=== PATIENT | male | born 1945 | race Caucasian/White ===

== ENCOUNTER → 2016-12-15 | Day surgery (SDC) | payer MEDICARE ==
[~2016-12-15] VITALS: Ht 170.2 cm; Wt 70.9 kg
[~2016-12-15] MED LIST: *morphine SULFATE 8 MG/ML PERIprocedure ONLY ONE; ACETAMINOPHEN 1000 MG/100 ML VIAL IV ONE; ACETAMINOPHEN/HYDROcodone 325 MG/5 MG TAB PO PRN; AMLO10TA2 PO; AMPICILLIN/SULBAC 3 GM/NS 100 ML IV SCH; ASPI325T PO; CHLORHEXIDINE GLUCONATE 2 % 1 PACK (2 CLOTHS) TOPICAL PRN; DIAZ5TAB PO; DIAZEPAM 5 MG TAB PO PRN; DO NOT ADM ANY ANTICOAGULANT DRUGS PRN; DULO1CAP3 PO; DULoxetine HCl DR 60 MG CAP PO SCH; INSULIN HUMAN REGULAR 1,000 UNITS/10 ML VIAL SQ PRN; LACTATED RINGER'S 1000 ML IV PRN; LIDOCAINE 1%/EPINEPHrine 1:100,000 SOLN 20 ML VIAL ONE; LISI-515 PO; LISINOPRIL 20 MG TAB PO SCH; LOVA40TA PO; METO50TA PO; METOPROLOL TARTRATE 25 MG TAB PO PRN; METOPROLOL TARTRATE 25 MG TAB PO SCH; MIDAZOLAM HCL 2 MG/2 ML VIAL ONE; MORP60TA24 PO; MORPHINE SULFATE 60 MG CONTROLLED RELEASE TAB PO SCH; MULT-135 PO; MULTIVITAMIN TAB PO SCH; ONDANSETRON HCL 4 MG/2 ML VIAL IV PUSH ONE; ONDANSETRON HCL 4 MG/2 ML VIAL IV PUSH PRN; OXYB5TAB10 PO; OXYBUTYNIN CHLORIDE 5 MG TAB PO SCH; OXYC15TA PO; POVIDONE IODINE 5% (ANTISEPSIS KIT) 4 APPLICATIONS EACH NARE PRN; PRAVASTATIN SOD 40 MG TAB PO SCH; PROPOFOL 200 MG/20 ML AMP IV ONE; SODIUM CHLORID 0.9% 500 ML IV PRN; TRAZ150T75 PO; TRIA37.5 PO; TRIAMTERENE/HCTZ 37.5 MG/25 MG TAB PO SCH; VENL100T PO; VENL75TA PO; fentaNYL CITRATE 250 MCG/5 ML AMP ONE; traZODone HCL 50 MG TAB PO SCH
[2016-12-15 07:40] VITALS: BP 137/70; PULSE 46; RESP 16; TEMP 98.1; O2SAT 97
[2016-12-15 11:55] VITALS: BP 138/71; PULSE 45; RESP 18; TEMP 97.5; O2SAT 95
--- NOTE | 2016-12-15 19:20 | EKG ---
Date Performed: 12/15/2016 Time Performed: 06:53:17 PTAGE: 71 years EKG: SINUS BRADYCARDIA INCOMPLETE RIGHT BUNDLE BRANCH BLOCK MODERATE T-WAVE ABNORMALITY ABNORMAL ECG PREVIOUS TRACING : 05/09/2012 19.41 Compared to prior tracing no significant change DOCTOR: Stefan Lincoln Interpretating Date/Time 12/15/2016 19:19:17
--- NOTE | 2016-12-27 12:56 | MP ---
cc: MAR BROOKE M.D. DATE OF SURGERY December 15, [address] Mar Brooke PREOPERATIVE DIAGNOSIS Chronic left submandibular sialoadenitis. POSTOPERATIVE DIAGNOSIS Chronic left submandibular sialoadenitis. OPERATION PERFORMED Excision left submandibular salivary gland. INDICATIONS Documented in the history and physical. DESCRIPTION OF OPERATION The patient was taken to OR #6 and placed in the supine position. Following induction of general anesthesia and intubation, the neck was marked with a 6-cm horizontal line. This was approximately 5-cm below the inferior margin of the mandible. The gland was palpable within the neck just above the level of this line. The line was then injected with a total of 4 mL of 1% Xylocaine with epinephrine 1:100,000. He was then prepped and draped for surgery. The lazaro was then incised down to a subplatysmal plane exposing the superficial layer of deep cervical fascia. This fascia was then elevated and bluntly penetrated using a Green dissector and then using blunt and bipolar cautery The fascia was dissected free from the submandibular glands on all sides. During this process the facial artery and vein were doubly clamped and ligated near their entrance to the gland in the posterior superior. Dissection continued across the top surface of the gland until the ganglion was encountered. Here the lingual nerve was released and preserving within the neck. The mylohyoid muscle was dissected free from the duct and the anterior margin of the gland and then the duct was doubly clamped and ligated using a 2-0 silk suture ligature. The gland was thus mobilized and passed off the field for histological examination. The wound was irrigated and suctioned. A 1/4-inch Hever drain was placed into the depths of the wound and the wound was then closed in layers beginning with 3-0 Vicryl interrupted in the platysma muscle layer, 4-0 Vicryl subcutaneous and the skin was closed using a 5-0 fast-absorbing plain gut in running locked technique. The drain was sewn in with a 3-0 Vicryl suture. A [place] dressing was applied and the procedure was terminated. The patient was reversed from anesthesia and taken to recovery in good condition. There were no complications. Blood loss was less than 20 mL. MD ANGEL Hilario/VICKY /10:38 AM /12:52 PM
== END | disposition home or self-care (01) ==
LOC: HSDC 06:24
PROVIDERS: ATTEND Otolaryngology
DX: K11.23 Chronic sialoadenitis (principal); J37.0 Chronic laryngitis; K21.0 Gastro-esophageal reflux disease with esophagitis; F17.200 Nicotine dependence, unspecified, uncomplicated; Z01.810 Encounter for preprocedural cardiovascular examination
CPT/HCPCS: 00100; 42440; 88307; 93005; J0131; J0295; J2250; J2270; J2405; J3010; J7120; 88305

== ENCOUNTER → 2017-06-08 | Outpatient (CLI) | payer MEDICARE ==
[~2017-06-08] MED LIST changes: -*morphine SULFATE 8 MG/ML PERIprocedure ONLY ONE; -ACETAMINOPHEN 1000 MG/100 ML VIAL IV ONE; -ACETAMINOPHEN/HYDROcodone 325 MG/5 MG TAB PO PRN; -AMPICILLIN/SULBAC 3 GM/NS 100 ML IV SCH; -CHLORHEXIDINE GLUCONATE 2 % 1 PACK (2 CLOTHS) TOPICAL PRN; -DIAZEPAM 5 MG TAB PO PRN; -DO NOT ADM ANY ANTICOAGULANT DRUGS PRN; -DULoxetine HCl DR 60 MG CAP PO SCH; -INSULIN HUMAN REGULAR 1,000 UNITS/10 ML VIAL SQ PRN; -LACTATED RINGER'S 1000 ML IV PRN; -LIDOCAINE 1%/EPINEPHrine 1:100,000 SOLN 20 ML VIAL ONE; -LISINOPRIL 20 MG TAB PO SCH; -METOPROLOL TARTRATE 25 MG TAB PO PRN; -METOPROLOL TARTRATE 25 MG TAB PO SCH; -MIDAZOLAM HCL 2 MG/2 ML VIAL ONE; -MORPHINE SULFATE 60 MG CONTROLLED RELEASE TAB PO SCH; -MULTIVITAMIN TAB PO SCH; -ONDANSETRON HCL 4 MG/2 ML VIAL IV PUSH ONE; -ONDANSETRON HCL 4 MG/2 ML VIAL IV PUSH PRN; -OXYBUTYNIN CHLORIDE 5 MG TAB PO SCH; -POVIDONE IODINE 5% (ANTISEPSIS KIT) 4 APPLICATIONS EACH NARE PRN; -PRAVASTATIN SOD 40 MG TAB PO SCH; -PROPOFOL 200 MG/20 ML AMP IV ONE; -SODIUM CHLORID 0.9% 500 ML IV PRN; -TRIAMTERENE/HCTZ 37.5 MG/25 MG TAB PO SCH; -VENL100T PO; -fentaNYL CITRATE 250 MCG/5 ML AMP ONE; -traZODone HCL 50 MG TAB PO SCH
[2017-06-08 10:31] LABS: AUTOMATED NEUTROPHIL # 4.3 TH/MM3 (1.8-7.7); BASOPHIL % 0.3 % (0.0-2.0); EOSINOPHIL # 0.4 TH/MM3 (0-0.4); EOSINOPHIL % 5.5 % (0.0-4.0); HEMATOCRIT 39.8 % (39.0-51.0); HEMOGLOBIN 13.5 GM/DL (13.0-17.0); LYMPH % 28.5 % (9.0-44.0); LYMPHOCYTE # 2.1 TH/MM3 (1.0-4.8); MEAN CELL VOLUME 93.3 FL (80.0-100.0); MEAN CORPUSCULAR HEMOGLOBIN 31.6 PG (27.0-34.0); MEAN CORPUSCULAR HGB CONC 33.9 % (32.0-36.0); MEAN PLATELET VOLUME 6.7 FL (7.0-11.0); MONOCYTE # 0.5 TH/MM3 (0-0.9); NEUT % 58.7 % (16.0-70.0); PLATELET COUNT 209 TH/MM3 (150-450); RED BLOOD COUNT 4.27 MIL/MM3 (4.50-5.90); RED CELL DISTRIBUTION WIDTH 13.6 % (11.6-17.2); WHITE BLOOD COUNT 7.3 TH/MM3 (4.0-11.0)
[2017-06-08 13:18] LABS: ALBUMIN 3.5 GM/DL (3.4-5.0); AST (GOT) 16 U/L (15-37); BICARBONATE 32.5 MEQ/L (21.0-32.0); BLOOD UREA NITROGEN 23 MG/DL (7-18); CALCIUM 8.8 MG/DL (8.5-10.1); CHLORIDE 100 MEQ/L (98-107); CHOLESTEROL 126 MG/DL (120-200); GLUCOSE,FASTING 97 MG/DL (74-99); SODIUM (NA) 138 MEQ/L (136-145)
[2017-06-08 13:26] LABS: ALKALINE PHOSPHATASE 120 U/L (45-117); ALT (GPT) 18 U/L (12-78); CHOLESTEROL/ HDL RATIO 2.25 RATIO; GLOMERULAR FILTRATION RATE 83 ML/MIN (>89); LDL CHOLESTEROL 55 MG/DL (0-99); TOTAL BILIRUBIN ADULT 0.3 MG/DL (0.2-1.0); TOTAL PROTEIN 6.9 GM/DL (6.4-8.2); TRIGLYCERIDES 73 MG/DL (42-150)
== END ==
LOC: OLAB 10:13
PROVIDERS: ATTEND Family Medicine
DX: I10 Essential (primary) hypertension (principal); E78.2 Mixed hyperlipidemia; I25.9 Chronic ischemic heart disease, unspecified
CPT/HCPCS: 36415; 80053; 80061; 85025